=== PATIENT | female | born 1995 | race Caucasian/White ===

== ENCOUNTER → 2024-01-29 15:12 | Outpatient (REF) | payer BC, SELFPAY | LOC: HWRAD 15:12 | PROVIDERS: ATTENDING PHYSICIAN Internal Medicine | DX: R07.81 Pleurodynia (principal) | CPT/HCPCS: 71110 ==

== ENCOUNTER → 2024-07-02 14:31 | Outpatient (REF) | payer BC, SELFPAY | LOC: HWRAD 14:31 | PROVIDERS: ATTENDING PHYSICIAN Internal Medicine | DX: M79.674 Pain in right toe(s) (principal) | CPT/HCPCS: 73660 ==